=== PATIENT | female | born 1990 | race African-American/Black ===

== ENCOUNTER 2017-11-01 10:37 | Emergency (ER) | payer OTHER ==
[~2017-11-01 10:37] MED LIST: IBUP400T20 PO
[2017-11-01 10:40] VITALS: BP 144/93; PULSE 85; RESP 22; TEMP 98.1; O2SAT 100
== END 2017-11-01 11:22 | disposition left against medical advice (07) ==
LOC: NED 10:37
DX: Z53.21 Procedure and treatment not carried out due to patient leaving prior to being seen by health care provider (principal)
CPT/HCPCS: 99281